=== PATIENT | female | born 1955 | race African-American/Black ===

== ENCOUNTER 2017-05-05 11:50 | Emergency (ER) | payer SELFPAY, OTHER | END 2017-05-05 16:22 | disposition left against medical advice (07) | LOC: FTE 11:50 | DX: Z53.21 Procedure and treatment not carried out due to patient leaving prior to being seen by health care provider (principal) ==

== ENCOUNTER 2017-08-24 11:43 | Emergency (ER) | payer OTHER | END 2017-08-24 13:13 | disposition home or self-care (01) | LOC: FTE 11:43 | DX: R03.0 Elevated blood-pressure reading, without diagnosis of hypertension (principal) | CPT/HCPCS: 99282 ==

== ENCOUNTER 2017-12-28 13:38 | Emergency (ER) | payer OTHER ==
[2017-12-28] MEDS: BACITRACIN 0.5%/ZINC 28.35 GM OINT TOP (14:35)
== END 2017-12-28 15:27 | disposition home or self-care (01) ==
LOC: FTE 13:38
DX: S80.211A Abrasion, right knee, initial encounter (principal); W01.0XXA Fall on same level from slipping, tripping and stumbling without subsequent striking against object, initial encounter; Y92.9 Unspecified place or not applicable
CPT/HCPCS: 73562; 99283-25